=== PATIENT | female | born 1950 | race Caucasian/White ===

== ENCOUNTER → 2018-06-14 | Outpatient (CLI) | payer MEDICARE ==
[~2018-06-14] MED LIST: ACID1TAB3 PO; ERTA1VIA IVPB; GADOBUTROL 10 MMOL/10 ML VIAL ONE; GLUCAGON 1 MG ONE; LIFI1DRO EACH EAR; LOTE5DRO2 EACHEYE
== END | disposition home or self-care (01) ==
LOC: CFH 11:03
PROVIDERS: ATTEND Internal Medicine Gastroenterology
DX: K56.601 Complete intestinal obstruction, unspecified as to cause (principal); N28.1 Cyst of kidney, acquired; K44.9 Diaphragmatic hernia without obstruction or gangrene
CPT/HCPCS: 72197; 74183; A9585; J1610